=== PATIENT | male | born 1950 | race Caucasian/White ===

== ENCOUNTER 2017-09-03 18:26 | Emergency (ER) | payer MEDICARE, OTHER ==
[2017-09-03 19:02] LABS: ABS Basophils 0 10^3/ul (0-0.2); ABS Eosinophils 0 10^3/ul (0-0.6); ABS Lymphocytes 0.5 10^3/ul (1.0-4.8); ABS Monocytes 0.2 10^3/ul (0-0.8); ABS Neutrophils 9.6 10^3/ul (1.5-7.7); ABS Nucleated RBC 0 10^3/ul; Eosinophil % 0 % (0-6); Hematocrit 47 % (42-52); Lymphocyte % 4.7 % (25-47); Mean Corpuscular HGB Conc 34 g/dl (31-36); Mean Corpuscular Hemoglobin 33 pg (27-31); Mean Corpuscular Volume 96 fL (80-94); Mean Platelet Volume 7.6 um3 (7.4-10.4); Nucleated Red Blood Cells % 0; Platelet Count 265 10^3/ul (150-450); Red Blood Count 4.86 10^6/ul (4.00-5.40); Red Cell Distribution Width 13 % (10.5-15); White Blood Count 10.4 10^3/ul (3.5-10.8)
--- NOTE | 2017-09-03 19:12 | RAD ---
INDICATION: Chest pain. COMPARISON: Comparison is made with a prior study from March 31, 2014. TECHNIQUE: A portable view of the chest was obtained. FINDINGS: Cardiac and mediastinal contours appear to be within normal limits. The lungs are clear. No pleural effusion is seen. IMPRESSION: NO EVIDENCE FOR ACUTE DISEASE.
[2017-09-03 19:14] LABS: INR 0.93 (0.77-1.02)
[2017-09-03 19:20] LABS: EGFR Non-African American 92.4 (>60)
[2017-09-03] MEDS ORDERED: Metoclopramide IV* 5 MG/ML 2 ML VIAL IV ONE (19:25)
[2017-09-03] MEDS ORDERED: NS 0.9% 1000 ML* 1,000 ML IV ONE ×2 (19:31→20:30)
[2017-09-03 19:51] LABS: Urine Appearance Clear; Urine Blood Negative (Negative); Urine Color Yellow; Urine Ketones 1+ (Negative); Urine Protein Negative (Negative); Urine Specific Gravity 1.015 (1.010-1.030); Urine Urobilinogen Negative (Negative)
[2017-09-03] MEDS ORDERED: Magnesium Oxide TAB* 400 MG PO ONE (21:03)
[2017-09-03] MEDS ORDERED: Ondansetron INJ* 2 MG/ML VIAL IV ONE (23:13)
--- NOTE | 2017-09-03 23:16 | ED ---
Rodriguez Urbina Natalie, anaibed for Bryant Burks MD on 09/03/17 at 2237 . Re-Evaluation - Re-Evaluation First Eval Re-Evaluation Time: 23:14 Change: Improved Comment: Pt's repeat troponin negative. pt resting comfortably in bed without any chest discomfort. Pt vomiting and diarrhea resolved. Pt tolerating po without difficulty. Course/Dx - Diagnoses Provider Diagnoses: Nausea, vomiting, and diarrhea Discharge - Sign-Out/Discharge Documenting (check all that apply): Discharge/Admit/Transfer - Discharge Plan Condition: Stable Disposition: HOME Prescriptions: Metoclopramide TAB* [Reglan TAB*] 10 mg PO Q8H PRN #10 tab PRN Reason: Vomiting Patient Education Materials: Acute Nausea and Vomiting (ED), Acute Diarrhea (ED ) Referrals: Gabriele Miguel DO [Primary Care Provider] - 3 Days Additional Instructions: Please follow up with your primary care provider. RETURN TO THE ED FOR ANY NEW OR WORSENING SYMPTOMS. - Billing Disposition and Condition Condition: STABLE Disposition: Home The documentation as recorded by the Rodriguez chow Natalie accurately reflects the service I personally performed and the decisions made by Vitaliy syed Omari A, MD.
[2017-09-03 23:39] VITALS: BP 141/75
--- NOTE | 2017-09-06 10:30 | ED ---
Girish Urbina Angela, scribed for Will Vásquez MD on 09/03/17 at 1853 . GI/ HPI - HPI Summary HPI Summary: This pt is a 67 y/o male presenting to [facility] via EMS c/o nausea, vomiting, and diarrhea since this morning. Pt reports dry heaves and chills all day today. He additionally states left arm weakness. He describes diarrhea as watery and brown. Pt describes emesis as clear/yellow, "almost like urine." Denies chest pain, SOB, abd pain, fever. Pt denies sick contacts at home. Denies recent antibiotics. He denies recent long distance traveling. PMHx includes cardiac stents. Pt states he was found to have PVCs by his jig fitter, Dr. Richardson. Dr. Richardson told the pt he will need to have stress tests done. - History of Current Complaint Chief Complaint: EDGeneral Time Seen by Provider: 09/03/17 18:29 Stated Complaint: VOMITING/LT ARM WEAKNESS Hx Obtained From: Patient Onset/Duration: Started Hours Ago, Still Present Timing: Lasting Hours Current Severity: None Pain Intensity: 0 - denies pain Associated Signs and Symptoms: Positive: Nausea, Vomiting, Diarrhea. Negative: Fever, Chills, Abdominal Pain, Chest Pain Aggravating Factor(s): Nothing Alleviating Factor(s): Nothing - Allergy/Home Medications Allergies/Adverse Reactions: Allergies Allergy/AdvReac Type Severity Reaction Status Date / Time No Known Allergies Allergy Verified 04/09/14 05:04 PMH/Surg Hx/FS Hx/Imm Hx Endocrine/Hematology History: Denies: Hx Sickle Cell Disease Cardiovascular History: Reports: Hx Angina, Hx Coronary Artery Disease, Hx Hypercholesterolemia, Hx Hypertension Denies: Hx Myocardial Infarction, Hx Valvular Heart Disease, Other Cardiovascular Problems/Disorders Respiratory History: Reports: Hx Sleep Apnea Denies: Hx Asthma, Hx Chronic Obstructive Pulmonary Disease (COPD) GI History: Reports: Hx Gastroesophageal Reflux Disease - TAKES MEDICATION, UNDER CONTROL History: Denies: Other Problems/Disorders Musculoskeletal History: Denies: Other Musculoskeletal History Sensory History: Reports: Hx Cataracts, Hx Contacts or Glasses - ADVISED TO WEAR GLASSES DAY OF SURGERY Denies: Hx Hearing Aid Opthamlomology History: Reports: Hx Cataracts, Hx Contacts or Glasses - ADVISED TO WEAR GLASSES DAY OF SURGERY Neurological History: Denies: Other Neuro Impairments/Disorders - Surgical History Surgery Procedure, Year, and Place: TONSILS CHILD. COLONOSCOPY X 2 Hx Anesthesia Reactions: No Infectious Disease History: No Infectious Disease History: Denies: Traveled Outside the [place] in Last 30 Days - Family History Known Family History: Positive: Diabetes - Mother Family History: Mother: arthritis - Social History Alcohol Use: Occasionally Alcohol Amount: 2 beers Substance Use Type: Reports: None Smoking Status (MU): Never Smoked Tobacco Review of Systems Positive: Chills. Negative: Fever Negative: Chest Pain Negative: Shortness Of Breath Positive: Vomiting, Diarrhea, Nausea. Negative: Abdominal Pain Genitourinary: Negative Positive: Weakness - on left arm All Other Systems Reviewed And Are Negative: Yes Physical Exam - Summary Physical Exam Summary: VITAL SIGNS: Reviewed. GENERAL: Patient is a well-developed and nourished male who is lying comfortable in the stretcher. Patient is not in any acute respiratory distress. HEAD AND FACE: No signs of trauma. No ecchymosis, hematomas or skull depressions. No sinus tenderness. EYES: PERRLA, EOMI x 2, No injected conjunctiva, no nystagmus. EARS: Hearing grossly intact. Ear canals and tympanic membranes are within normal limits. MOUTH: Oropharynx within normal limits. NECK: Supple, trachea is midline, no adenopathy, no JVD, no carotid bruit, no c- spine tenderness, neck with full ROM. CHEST: Symmetric, no tenderness at palpation LUNGS: Clear to auscultation bilaterally. No wheezing or crackles. CVS: Regular rate and rhythm, S1 and S2 present, no murmurs or gallops appreciated. ABDOMEN: Soft, non-tender. No signs of distention. No rebound no guarding, and no masses palpated. Bowel sounds are normal. EXTREMITIES: FROM in all major joints, no edema, no cyanosis or clubbing. NEURO: Alert and oriented x 3. No acute neurological deficits. Speech is normal and follows commands. SKIN: Dry and warm Triage Information Reviewed: Yes Vital Signs On Initial Exam: Initial Vitals Temp Pulse Resp BP Pulse Ox 98.1 F 69 18 145/73 98 09/03/17 18:28 09/03/17 18:28 09/03/17 18:28 09/03/17 18:28 09/03/17 18:28 Vital Signs Reviewed: Yes Diagnostics - Vital Signs Vital Signs Temp Pulse Resp BP Pulse Ox 09/03/17 18:28 98.1 F 69 18 145/73 98 - Laboratory Result Diagrams: 09/03/17 18:48 09/03/17 18:48 Lab Statement: Any lab studies that have been ordered have been reviewed, and results considered in the medical decision making process. - Radiology Chest XR Xray Interpretation: No Acute Changes - IMPRESSION: No evidence for acute disease. Dr. Vásquez has reviewed this radiology report. Radiology Interpretation Completed By: Radiologist - EKG 18:36 Cardiac Rate: NL - at 66 bpm EKG Rhythm: Sinus Rhythm Ectopy: PVCs - multiple EKG Interpretation: No ST elevations Re-Evaluation - Re-Evaluation First Eval Re-Evaluation Time: 20:45 Change: Improved Comment: Pt is feeling better. He does not have any nausea or vomiting. GIGU Course/Dx - Course Assessment/Plan: Pt is a 67 y/o male who presents with nausea, vomiting, and diarrhea since this morning. Pt reports dry heaves and chills all day today. He additionally states left arm weakness. He describes diarrhea as watery and brown. Pt describes emesis as clear/yellow, "almost like urine." Denies chest pain, SOB, abd pain, fever. Test results without any significant abnormalities except for glucose of 158, lactic acid of 2.9, magnesium of 1.7, for which the pt was given magnesium oxide. Pt has not given any stool samples. Chest XR shows no evidence for acute disease. He was hydrated with 2 L of IV fluids and he feels better. The pt was also given Reglan for the nausea and vomiting and his symptoms resolved. He was given a PO challenge and is feeling better. At this time the second troponin is still pending. Pt will be signed out to Dr. Burks at shift change, pending disposition, awaiting second troponin. If second troponin is negative the pt can be discharged home with follow up from PCP. - Diagnoses Provider Diagnoses: Nausea, vomiting, and diarrhea Discharge - Sign-Out/Discharge Documenting (check all that apply): Sign-Out Patient Signing out patient TO: Bryant Burks - pending dispo, awaiting second troponin. - Discharge Plan Condition: Stable Disposition: HOME Prescriptions: Metoclopramide TAB* [Reglan TAB*] 10 mg PO Q8H PRN #10 tab PRN Reason: Vomiting Patient Education Materials: Acute Nausea and Vomiting (ED), Acute Diarrhea (ED ) Referrals: Gabriele Miguel, [Primary Care Provider] - 3 Days Additional Instructions: Please follow up with your primary care provider. RETURN TO THE ED FOR ANY NEW OR WORSENING SYMPTOMS. The documentation as recorded by the Girish chow Angela accurately reflects the service I personally performed and the decisions made by , Will Vásquez MD.
== END 2017-09-03 23:38 | disposition home or self-care (01) ==
LOC: ED 18:26
DX: R11.2 Nausea with vomiting, unspecified (principal); R19.7 Diarrhea, unspecified; R53.1 Weakness; I10 Essential (primary) hypertension; I25.119 Atherosclerotic heart disease of native coronary artery with unspecified angina pectoris; E78.00 Pure hypercholesterolemia, unspecified; K21.9 Gastro-esophageal reflux disease without esophagitis; I49.3 Ventricular premature depolarization; Z79.82 Long term (current) use of aspirin; Z79.899 Other long term (current) drug therapy; I44.4 Left anterior fascicular block; Z95.5 Presence of coronary angioplasty implant and graft
CPT/HCPCS: 36415; 71045; 80053; 81003; 82550; 82553; 83605; 83690; 83735; 83880; 84443; 84484; 85025; 85610; 85730; 86140; 93005; 96374; 96375; 99283; J2405; J2765

== ENCOUNTER 2019-02-07 06:26 | Day surgery (SDC) | payer MEDICARE, OTHER ==
--- NOTE | 2019-01-23 07:24 | HP ---
PREOPERATIVE HISTORY AND PHYSICAL: DATE OF ADMISSION/SURGERY: 02/07/19 DATE OF OFFICE VISIT/ENCOUNTER: 01/18/19 ATTENDING SURGEON: Eli Paige MD.* (DICTATED BY SRIDHAR GARAY) RURAL ELECTRIFICATION ENGINEER: Dr. Richardson. PROCEDURE: Extensor tenosynovectomy right wrist. HISTORY OF PRESENT ILLNESS: This is a 68-year-old male. He complains of 2 areas of swelling on his right wrist that has been present for over a year and a half. He denies any injury. The areas of swelling involve the third and second extensor compartment of the right wrist. He denies any significant pain with these areas of swelling, but they have grown larger over time. He has some baseline discomfort in both of his wrists secondary to osteoarthritic changes. He denies any numbness or tingling. He has been treated in the past by Dr. Paige for this wrist in 2012 for extensor tenosynovitis. He had a tenosynovectomy performed at that time. He has currently been diagnosed with extensor tenosynovitis again and Dr. Paige is recommending surgical intervention. The patient has consented to proceed. He has has a history of coronary artery disease and cardiac stent placement, and we will get clearance from his pilot submersible Dr. Richardson prior to proceeding with surgery. PAST MEDICAL HISTORY: 1. Hypercholesterolemia. 2. Coronary artery disease. 3. Sleep apnea with CPAP. 4. GERD. 5. Osteoarthritis. PAST SURGICAL HISTORY: 1. Stent placement x2 four years ago. 2. Extensor tenosynovectomy right wrist. CURRENT MEDICATIONS: 1. Acetaminophen 500 mg 1 tab b.i.d. p.r.n. pain. 2. Aspirin 81 mg daily. 3. Atorvastatin calcium 20 mg daily. 4. Multivitamin daily. 5. Diclofenac sodium 75 mg twice a day. 6. Glucosamine chondroitin 500 mg b.i.d. 7. Nitrostat 0.4 mg 1 sublingual q.5 minutes up to 3 doses p.r.n. 8. Omeprazole 20 mg daily. 9. Potassium chloride ER 10 mEq daily. ALLERGIES: No known drug allergies. FAMILY MEDICAL HISTORY: Noncontributory. SOCIAL HISTORY: The patient is retired. He denies tobacco and recreational drug use. He drinks alcohol on occasion. REVIEW OF SYSTEMS: Negative for general, cephalic, cardiovascular, respiratory , GI, , other musculoskeletal, integumentary, endocrine, neurologic, and hematologic symptoms. Infectious Disease: Negative for MRSA, hepatitis C, HIV. PHYSICAL EXAMINATION GENERAL: A well-developed, well-nourished 68-year-old male, in no acute distress. VITAL SIGNS: Height 5 feet 7 inches, weight 177 pounds. Pulse rate 64, blood pressure 144/88. HEENT: Normocephalic, atraumatic. Pupils are equal, round, and reactive to light and accommodation. Extraocular movements are intact. Throat is clear. NECK: Supple. No palpable lymph nodes. PULMONARY: Lungs are clear to auscultation bilaterally. No wheezes, rales, or rhonchi. CARDIOVASCULAR: Regular rate and rhythm. S1, S2. No murmurs, rubs, or gallops. No edema. ABDOMEN: Positive bowel sounds. Soft, nontender. NEUROLOGICAL: Alert and oriented x3. Cranial nerves II through XII are intact. Sensation is intact to light touch. MUSCULOSKELETAL: On exam of his right wrist, he has a large area of extensor tenosynovitis involving the third and second extensor tendon compartment. Minimally tender to palpation. He has good motion in his wrist and fingers. Skin is intact. Neurovascular function is intact. IMAGING: X-rays AP, lateral, and oblique of the right wrist and forearm show osteoarthritic changes scattered throughout the wrist carpal bones and at the radiocarpal joint. Soft tissue swelling is appreciated on the x-rays. IMPRESSION: Right wrist extensor tenosynovitis. PLAN: The patient is scheduled to undergo surgical intervention in the form of an extensor tenosynovectomy right wrist with Dr. Paige on 02/07/19. He will return to the office 10 days postop for followup and suture removal. A prescription for tramadol was e-scribed to the patient's pharmacy for postoperative pain management. SRIDHAR GARAY [id number]/[facility] #: [id number] MTDStephanie
[~2019-02-07 06:26] MED LIST: Buffered Lidocaine 1% SYRIN* 1 ML/SYRINGE INTRADERM ONE; Lactated Ringers 1000 ML Bag* 1,000 ML IV SCH
[2019-02-07] MEDS ORDERED: ceFAZolin 2 GM in NS PREMIX(*) 2 GM/100 ML BAG IVPB ONE (06:38)
[2019-02-07] MEDS ORDERED: Lidocaine 1% INJ* 10 MG/ML 30 ML SDV ONE (07:20)
[2019-02-07] MEDS ORDERED: Bupivacaine 0.5% SDV PF* 30ML VIAL ONE (07:21)
[2019-02-07] MEDS ORDERED: Midazolam* 1 MG/ML 2 ML VIAL (2 MG) ONE (07:30)
[2019-02-07] MEDS ORDERED: fentaNYL* 50 MCG/ML 2 ML VIAL (100 MCG VIAL) ONE (07:30)
[2019-02-07] MEDS ORDERED: Lidocaine 2% PF * 5 ML VIAL ONE (07:41)
[2019-02-07] MEDS ORDERED: Propofol* 10 MG/ML 20 ML BTL ONE (07:41)
[2019-02-07] MEDS ORDERED: Ondansetron INJ* 2 MG/ML VIAL ONE (07:42)
[2019-02-07] MEDS ORDERED: Dexamethasone IV* 4 MG/ML 1 ML (4 MG) ONE (07:42)
[2019-02-07] MEDS ORDERED: HYDROcodone/ACETAMIN 5-325 MG* 1 TAB PO PRN (08:07)
[2019-02-07] MEDS ORDERED: Acetaminophen TAB* 325 MG PO PRN (08:07)
[2019-02-07] MEDS ORDERED: HYDROmorphone INJ1* 1 MG/ML SYRINGE IV PRN (08:07)
[2019-02-07] MEDS ORDERED: Naloxone* 0.4 MG/ML 1 ML VIAL IV PRN (08:07)
[2019-02-07] MEDS ORDERED: Ketorolac INJ* 30 MG/ML 1 ML VIAL ONE (08:09)
[2019-02-07 09:56] VITALS: BP 138/87
--- NOTE | 2019-02-07 11:38 | OP ---
DATE OF OPERATION: 02/07/19 [facility] DATE OF : 50 SURGEON: Eli Paige MD SEMI TRUCK DRIVER: SRIDHAR Velasquez ANESTHESIA: General. PRE-OP DIAGNOSIS: Right wrist extensor tenosynovitis. POST-OP DIAGNOSIS: Right wrist extensor tenosynovitis. OPERATIVE PROCEDURE: Right wrist extensor tenosynovectomy in two compartments. ESTIMATED BLOOD LOSS: Zero. TOURNIQUET TIME: About 30 minutes. INDICATION FOR PROCEDURE: Hari is a 68-year-old man who has a history of extensor tenosynovectomy in his fourth extensor compartment. He now has extensor tenosynovitis in his third extensor compartment and second extensor compartment. He presents for tenosynovectomy. DESCRIPTION OF PROCEDURE: The patient was brought to the operating room and was given a general anesthetic and placed in the supine position on the operating table with a tourniquet around his right upper arm. Skin of his right upper extremity was prepped and draped in the usual sterile fashion. The hand and forearm were exsanguinated and the tourniquet elevated to 250 mmHg. Total of 30 cc of Marcaine 0.5% plain was injected in the area of the incisions. A longitudinal incision was made over the second compartment tenosynovitis and we carefully dissected down to the tenosynovitis and debrided away from the tendons. The sensory nerve was retracted by the surgical services coordinator, Suhail Smith. This tissue was sent for pathology. The wound was irrigated and the skin edges reapproximated with 4-0 nylon suture. Next, an incision was made over the EPL tendon distal to the extensor retinaculum and this was encased in extensor tenosynovitis. This too was carefully debrided avoiding again branches of the radial sensory nerve and was sent for pathology. The tendons were in good condition. The wound was irrigated and the skin edges reapproximated with 4-0 nylon suture. The wound was dressed with Xeroform, 4x4 , ABD, Webril and an Branden wrapped. Prior to closure, a Claudio drain was placed in the wounds and this will be removed in 2 days. [id number]/[facility] #: [id number] MTDD
== END 2019-02-07 10:10 | disposition home or self-care (01) ==
LOC: OREAST 06:26
PROVIDERS: ATTEND Orthopaedic Surgery
DX: M65.831 Other synovitis and tenosynovitis, right forearm (principal); I10 Essential (primary) hypertension; E78.5 Hyperlipidemia, unspecified; I25.10 Atherosclerotic heart disease of native coronary artery without angina pectoris; Z95.5 Presence of coronary angioplasty implant and graft; K21.9 Gastro-esophageal reflux disease without esophagitis; M19.90 Unspecified osteoarthritis, unspecified site; G47.33 Obstructive sleep apnea (adult) (pediatric); E78.00 Pure hypercholesterolemia, unspecified
CPT/HCPCS: 88304; J0690; J1100; J1885; J2250; J2405; J2704; J3010; J3490